=== PATIENT | female | born 1955 | race Two or more races ===

== ENCOUNTER 2021-05-06 18:45 | Emergency (ER) | payer OTHER ==
[~2021-05-06] VITALS: Ht 157.5 cm; Wt 68.0 kg
[2021-05-06] MEDS ORDERED: CATAFLAN (19:11)
[2021-05-06] MEDS ORDERED: [UNRECOGNIZED DRUG - OTHER] (19:12)
[2021-05-06] MEDS ORDERED: DICLOFENAC SODI75 MG PO (20:44)
== END 2021-05-06 21:12 | disposition home or self-care (01) ==
LOC: ER 18:45
DX: S40.011A Contusion of right shoulder, initial encounter (principal); S70.01XA Contusion of right hip, initial encounter; S30.0XXA Contusion of lower back and pelvis, initial encounter; W18.39XA Other fall on same level, initial encounter; Y93.89 Activity, other specified; Y92.098 Other place in other non-institutional residence as the place of occurrence of the external cause; Y99.8 Other external cause status